=== PATIENT | female | born 1945 | race Caucasian/White ===

== ENCOUNTER → 2024-01-04 | Outpatient (CLI) | payer MEDICARE ==
[2024-01-04 10:46] LABS: African American GFR (CKD) >90 (>60 ml/min/1.73 sqM); Blood Urea Nitrogen 19 mg/dL (7-17); Non-African American GFR(CKD) 80 (>60 ml/min/1.73 sqM)
--- NOTE | 2024-01-04 11:24 | CT ---
EXAMINATION TYPE: CT chest w con CT DLP: 678 mGycm, Automated exposure control for dose reduction was used. DATE OF EXAM: 01/04/2024 11:05 AM COMPARISON: None CLINICAL INDICATION:Female, 78 years old with history of R069 UNSPECIFIED ABNORMALITIES OF BREATHING; breathing abnormality TECHNIQUE: Multiple axial images were obtained through the chest. Sagittal and coronal reformats were created for review. Contrast used:100 mL of Isovue 300 with IV Contrast (None if empty) Oral contrast used: (None if empty) FINDINGS: LUNGS/ PLEURA: Peripheral streaky reticulation throughout the lungs. No focal consolidation, pneumoth orax or pleural effusion no suspicious pulmonary nodules. AIRWAY: Patent and unremarkable. HEART: Heart is mildly enlarged for size. Lipomatous hypertrophy changes of the interatrial septum. MEDIASTINUM: No gross evidence of adenopathy. Moderate hiatal hernia. VASCULATURE: No aortic aneurysm. MUSCULOSKELETAL: No acute osseous abnormalities SOFT TISSUES/LYMPH NODES: Unremarkable. LOWER NECK: No significant findings. UPPER ABDOMEN: No significant findings. IMPRESSION: 1. Interstitial lung disease possibly relating to NSIP or sequela of prior atypical pneumonia. 2. Moderate hiatal hernia.
== END | disposition home or self-care (01) ==
LOC: RADCTMAIN 09:46
PROVIDERS: ATTEND Internal Medicine Critical Care Medicine
DX: J84.9 Interstitial pulmonary disease, unspecified (principal); K44.9 Diaphragmatic hernia without obstruction or gangrene
CPT/HCPCS: 82565; 84520; 71260; 36415; Q9967